=== PATIENT | female | born 1990 | race Two or more races ===

== ENCOUNTER 2017-12-03 13:50 | Emergency (ER) | payer OTHER ==
[2017-12-03] MEDS ORDERED: Sodium Chloride 0.9% 900 ML IV ONE (14:12)
--- NOTE | 2017-12-03 14:33 | ED Physician Chart ---
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; LNMP: 11/30/17; pt denies Allergies:: Allergies Allergy/AdvReac Type Severity Reaction Status Date / Time MDX No Known Allergies - Nka Allergy Verified 11/14/12 23:42 [No Known Allergies - Nka] Vitals:: Vital Signs - 8 hr 12/03/17 14:05 Temp 99 F HR 80 RR 16 BP 145/80 O2 Sat % 98 Historian:: Patient, Family Member Review:: Nurse's Note Reviewed ED Review of Systems - Review of Systems General/Constitutional: No fever, No chills, No weight loss, No weakness, No diaphoresis, No edema, No loss of appetite Skin: No skin lesions, No rash, No bruising Head: No headache, No light-headedness Eyes: No loss of vision, No pain, No diplopia ENT: No earache, No nasal drainage, No sore throat, No tinnitus Neck: No neck pain, No swelling, No thyromegaly, No stiffness, No mass noted Cardio Vascular: No chest pain, No palpitations, No PND, No orthopnea, No edema Pulmonary: No SOB, No cough, No sputum, No wheezing GI: Nausea, Vomiting, Diarrhea, No pain, No melena, No hematochezia, No constipation, No hematemesis G/U: No dysuria, No frequency, No hematuria, No nacturia Veterinary Technologist: No vaginal discharge, No abnormal vaginal bleed, No contraction Musculoskeletal: No bone or joint pain, No back pain, No muscle pain Endocrine: No polyuria, No polydipsia Psychiatric: No prior psych history, No depression, No anxiety, No suicidal ideation, No homicidal ideation, No auditory hallucination, No visual hallucination Hematopoietic: No bruising, No lymphadenopathy Allergic/Immuno: No urticaria, No angioedema Neurological: No syncope, No focal symptoms, No weakness, No paresthesia, No headache, No seizure, Dizziness, No confusion, Vertigo ED Past Medical History - Past Medical History Obtainable: Yes Past Medical History: No significant medical hx Family History: None Social History: Non Smoker, No Alcohol, No Drug Use, Single, Lives With Parents Surgical History: None Psychiatricy History: None Medication: Reviewed ED Physical Exam - Physical Examination General/Constitutional: Awake, Well-developed, well-nourished, Alert, No distress, GCS 15, Non-toxic appearing, Ambulatory Head: Atraumatic Eyes: Lids, conjuctiva normal, PERRL, EOMI Skin: Nl inspection, No rash, No skin lesions, No ecchymosis, Well hydrated, No lymphadenopathy ENMT: External ears, nose nl, TM canals nl, Nasal exam nl, Lips, teeth, gums nl , Oropharynx nl, Tonsils nl Other ENMT comments:: + positional Vertigo Neck: Nontender, Full ROM w/o pain, No JVD, No nuchal rigidity, No bruit, No mass, No stridor Other Neck comments:: supple; no meningeal signs; no cervical tenderness; no bruits Respiratory: Nl effort/Exclusion, Clear to Auscultation, No Wheeze/Rhonchi/Rales Cardio Vascular: RRR, No murmur, gallop, rubs, NL S1 S2, Carotid/Femoral/Distal pulses equal bilaterally GI: No tenderness/rebounding/guarding, No organomegaly, No hernia, Normal BS's, Nondistended, No mass/bruits, No McBurney tenderness, Rectum exam nl Other GI comments:: no pulsatile masses; good BS : No CVA tenderness Extremities: No tenderness or effusion, Full ROM, normal strength in all extremities, No edema, Normal digits & nails Neuro/Psych: Alert/oriented, DTR's symmetric, Normal sensory exam, Normal motor strength, Judgement/insight normal, Mood normal, Normal gait, No focal deficits Other Neuro/Psych comments:: no focal signs Misc: Normal back, No paraspinal tenderness ED Labs/Radiology/EKG Results - Lab Results Comments:: unremarkable - Radiology Results Comments:: X-Rays: deferred by pt - EKG Interpretations EKG Time:: 14:22 Rate & Rhythm: 91; NSR Comments:: non-specific st-t changes ED Septic Shock - . Is Septic Shock (SBP<90, OR Lactate>4 mmol\L) present?: No - <6hrs of presentation: Vital Signs: Vital Signs - 8 hr 12/03/17 14:05 Temp 99 F HR 80 RR 16 BP 145/80 O2 Sat % 98 ED Reassessment (Disposition) - Reassessment Reassessment:: pt tolerated po fluids well in ER; pt is asymptomatic upon discharge Reassessment Condition:: Improved - Diagnosis Diagnosis:: Dx: Vertigo; Dizziness; BPV (Benign Positional Vertigo); Labyrinthritis; Viral Syndrome; N/V/D; Gastritis; AGE; Gastroenteritis - Aftercare/Follow up Instructions Aftercare/Follow-Up Instructions:: Counseled pt regarding lab results/diagnosis & need follow up, Refer to Discharge Instructions, Counseled pt & family regarding lab results/diagnosis & need follow up Medication Prescribed:: Clear Liquids; Fluids - Patient Disposition Discharge/Transfer:: Home Condition at Disposition:: Stable, Improved (RTER prn if existing s/s reoccur and/or get worse and/or any other new s/s occur; ACIs given for all above Dx; Refer to Embedded Software Development Engineer/Neurologist/ENT Specialist/Brush Maker Machine [employer]SUELO; F/U with PMD in one day or prn; RTER prn if concerned)
[2017-12-03 14:35] LABS: URINE MICROSCOPIC INDICATED? YES; URINE SOURCE CLEAN C
[2017-12-03 14:38] LABS: % BASOPHILS 0.7 % (0.0-2.0); % EOSINOPHILS 1.5 % (0.0-5.0); % LYMPHOCYTES 43.2 % (20.0-50.0); % MONOCYTES 6.8 % (2.0-10.0); % NEUTROPHILS 47.8 % (40.0-80.0); BASOPHILE ABSOLUTE 0.1 Th/cumm (0-0.2); EOSINOPHILE ABSOLUTE 0.1 Th/cmm (0.1-0.4); HEMATOCRIT 39.3 % (41.0-60); HEMOGLOBIN 13.1 gm/dL (12-16); LYMPHOCYTE ABSOLUTE 3.4 Th/cmm (1.5-3.0); MEAN CELL VOLUME 91.4 fl (81-100); MEAN CORPUSCULAR HEMOGLOBIN 30.4 pg (27.0-31.0); MEAN CORPUSCULAR HGB CONC 33.3 pg (28.0-36.0); MEAN PLATELET VOLUME 7.3 fl; MONOCYTE ABSOLUTE 0.5 Th/cmm (0.3-1.0); NEUTROPHILE ABSOLUTE 3.8 Th/cmm (1.8-8.0); PLATELET COUNT 288 Th/cmm (150-400); RED CELL DISTRIBUTION WIDTH 11.7 % (11.5-20.0); WHITE BLOOD COUNT 7.9 Th/cmm (4.8-10.8)
[2017-12-03 14:43] LABS: URINE BILIRUBIN NEGATIVE (NEGATIVE); URINE BLOOD NEGATIVE (NEGATIVE); URINE GLUCOSE (UA) NEGATIVE (NEGATIVE); URINE KETONE NEGATIVE (NEGATIVE); URINE LEUKOCYTE ESTERASE NEGATIVE (NEGATIVE); URINE NITRATE NEGATIVE (NEGATIVE); URINE PROTEIN NEGATIVE (NEGATIVE); URINE UROBILINOGEN 0.2 E.U./dL (0.2 - 1.0)
[2017-12-03 14:46] LABS: INR 0.93 (0.5-1.4); PROTHROMBIN TIME (TEST) 9.7 SECONDS (9.5-11.5)
[2017-12-03 15:00] LABS: URINE CLARITY CLEAR (CLEAR); URINE COLOR YELLOW
[2017-12-03 15:02] LABS: URINE AMORPHOUS SEDIMENT MODERATE URATES (NONE SEEN); URINE BACTERIA NONE SEEN /hpf (NONE SEEN); URINE EPITHELIAL CELLS OCCASIONAL /lpf (FEW); URINE RBC 0-2 /hpf (0-5); URINE WBC 0-2 /hpf (0-5)
[2017-12-03 17:03] LABS: ANION GAP 14.3 (7.0-16.0); BUN - UREA NITROGEN 19 mg/dL (7-25); CHLORIDE 101 mEq/L (98-107); GLUCOSE 97 mg/dL (70-105); POTASSIUM SERUM 3.3 mEq/L (3.5-5.1); SODIUM SERUM 136 mEq/L (136-145)
[2017-12-03 17:04] LABS: ALBUMIN 4.2 gm/dL (3.7-5.3); ALKALINE PHOSPHATASE 52 U/L (34-104); BILIRUBIN,TOTAL 0.5 mg/dL (0.3-1.0); CALCIUM SERUM 9.5 mg/dL (8.6-10.3); CREATININE - SERUM 0.6 mg/dL (0.6-1.2); GFR AFRICAN-AMERICAN > 60.0 ml/min (>90); GFR NON AFRICAN-AMERICAN > 60.0 ml/min; SGOT 12 U/L (13-39); SGPT/ALT 19 U/L (7-52); TOTAL PROTEIN,SERUM 8.3 gm/dL (6.0-8.3)
[2017-12-03 17:05] LABS: AMYLASE SERUM 55 U/L (29-103); CHOLESTEROL 127 mg/dL (<200); CREATININE KINASE 58 U/L (30-223); HDL -HIGH DENSITY LIPOPROTEIN 60 mg/dL (23-92); LIPASE 128 U/L (11-82); TRIGLYCERIDES 85 mg/dL (<150)
== END 2017-12-03 17:15 | disposition home or self-care (01) ==
LOC: ER 13:50
DX: H81.10 Benign paroxysmal vertigo, unspecified ear (principal); K52.9 Noninfective gastroenteritis and colitis, unspecified; H83.09 Labyrinthitis, unspecified ear
CPT/HCPCS: 36415-UA; 80053-TC; 80061-TC; 81001-TC; 82150-TC; 82550-TC; 83690-TC; 83880-TC; 84484-TC; 84703-TC; 85025-TC; 85610-TC; 93005; 94760

== ENCOUNTER 2017-12-24 15:10 | Outpatient (CLI) | payer OTHER ==
--- NOTE | 2017-12-25 09:27 | Diagnostic Imaging Report ---
CHEST X-RAY: 2 views INDICATION: pain COMPARISON: None FINDINGS: Mild increased interstitial lung markings are noted. No focal consolidation or effusions. The heart is at the upper limits of normal in size. The osseous structures are intact. Gas-filled loops of bowel of the left upper quadrant are noted. External material is seen overlying the breast region. IMPRESSION: Mild increased interstitial lung markings, nonspecific. No focal airspace consolidation identified.
== END 2017-12-24 15:56 | disposition home or self-care (01) ==
LOC: RAD 15:10
PROVIDERS: ATTEND Family Medicine
DX: R91.8 Other nonspecific abnormal finding of lung field (principal)
CPT/HCPCS: 71046-TC

== ENCOUNTER 2018-05-06 13:49 | Outpatient (CLI) | payer OTHER ==
[2018-05-06 14:51] LABS: ALB/GLOB RATIO 1.4 (1.0-1.8); ALBUMIN 4.3 gm/dL (3.7-5.3); ALKALINE PHOSPHATASE 38 U/L (34-104); ANION GAP 13.5 (7.0-16.0); BILIRUBIN,TOTAL 0.4 mg/dL (0.3-1.0); BUN - UREA NITROGEN 13 mg/dL (7-25); CALCIUM SERUM 9.5 mg/dL (8.6-10.3); CARBON DIOXIDE 24.9 mEq/L (21.0-31.0); CHLORIDE 102 mEq/L (98-107); CHOLESTEROL 127 mg/dL (<200); CREATININE - SERUM 0.6 mg/dL (0.6-1.2); GFR AFRICAN-AMERICAN > 60.0 ml/min (>90); GFR NON AFRICAN-AMERICAN > 60.0 ml/min; GLUCOSE 139 mg/dL (70-105); HDL -HIGH DENSITY LIPOPROTEIN 51 mg/dL (23-92); POTASSIUM SERUM 3.4 mEq/L (3.5-5.1); SGOT 16 U/L (13-39); SGPT/ALT 15 U/L (7-52); SODIUM SERUM 137 mEq/L (136-145); TOTAL PROTEIN,SERUM 7.4 gm/dL (6.0-8.3); TRIGLYCERIDES 181 mg/dL (<150)
[2018-05-07 08:12] LABS: T3 FREE 3.1 pg/mL (2.0-4.4); T4 FREE 1.6 ng/dL (0.82-1.77)
== END 2018-05-06 14:30 | disposition home or self-care (01) ==
LOC: LAB 13:49
DX: E87.6 Hypokalemia (principal)
CPT/HCPCS: 36415-UA; 80053-TC; 80061-TC; 84439-90; 84443-TC; 84479-90